=== PATIENT | female | born 1975 ===

== ENCOUNTER 2018-09-29 13:27 | Emergency (ER) | payer MEDICAID ==
[2018-09-29 13:32] VITALS: BMI 25.6
[2018-09-29 13:35] VITALS: TEMP 99
[2018-09-29 14:58] LABS: BASO % 0.8 % (0.0-2.0); EOS % 0.1 % (0.0-4.0); HEMOGLOBIN 10.9 g/dL (11.0-16.0); LYMPH # 1.3 K/uL (1.0-4.3); LYMPH % 34.8 % (20.0-40.0); MEAN CELL VOLUME 66.5 fL (81.0-99.0); MEAN CORPUSCULAR HEMOGLOBIN 21.4 pg (27.0-31.0); MEAN CORPUSCULAR HGB CONC 32.2 g/dL (33.0-37.0); MEAN PLATELET VOLUME 8.8 fL (7.2-11.7); MONO # 0.3 K/uL (0.0-0.8); MONO % 7.6 % (0.0-10.0); NEUT # 2.2 K/uL (1.8-7.0); NEUT % 56.7 % (50.0-75.0); NRBC % 0.1 % (0.0-2.0); RBC 5.07 Mil/uL (3.80-5.20); RED CELL DISTRIBUTION WIDTH 14.2 % (11.5-14.5); WHITE BLOOD COUNT 3.8 K/uL (4.8-10.8)
[2018-09-29 15:12] LABS: ALB/GLOB RATIO 1.7 (1.0-2.1); ALBUMIN 4.6 g/dL (3.5-5.0); ALT/SGPT 21 U/L (9-52); AST/SGOT 21 U/L (14-36); BLOOD UREA NITROGEN 8 mg/dL (7-17); CALCIUM 9.4 mg/dl (8.6-10.4); GFR NON-AFRICAN AMERICAN > 60
--- NOTE | 2018-09-29 15:32 | RAD ---
HISTORY: chest pain COMPARISON: None available. TECHNIQUE: Chest, one view. FINDINGS: LUNGS: No focal consolidation. Please note that chest x-ray has limited sensitivity for the detection of pulmonary masses. PLEURA: No significant pleural effusion identified. No definite pneumothorax . CARDIOVASCULAR: Heart size appears within normal limits. No significant atherosclerotic calcification present. OSSEOUS STRUCTURES: No acute osseous abnormality identified. VISUALIZED UPPER ABDOMEN: Unremarkable. OTHER FINDINGS: None. IMPRESSION: No focal consolidation.
[2018-09-29 16:02] VITALS: BP 117/74; PULSE 72; RESP 20; O2SAT 98
--- NOTE | 2018-09-29 17:47 | C.PDOC ---
History Of Present Illness 43 year old female with no medical problems presents to the emergency department with complaints of anxiety associated with a sharp chest pain since last night. Patient states that she is "under a tremendous amount of stress", as her son is sick at home so she stayed awake most of last night and her dog was euthanized this morning. Patient denies shortness of breath, fever, and cough. Chief Complaint (Nursing): Chest Pain History Per: Patient History/Exam Limitations: no limitations Onset/Duration Of Symptoms: Days (1) Current Symptoms Are (Timing): Still Present Quality: "Pain" Associated Symptoms: Other (anxiety). denies: Dyspnea Past Medical History Reviewed: Historical Data, Nursing Documentation, Vital Signs Vital Signs: Last Vital Signs Temp 99.0 F 09/29/18 13:32 Pulse 72 09/29/18 16:01 Resp 20 09/29/18 16:01 BP 117/74 09/29/18 16:01 Pulse Ox 98 09/29/18 16:01 - Medical History PMH: No Chronic Diseases Surgical History: (twin) Family History: States: Hypertension (Mother) - Social History Hx Alcohol Use: Yes Hx Substance Use: No - Immunization History Hx Tetanus Toxoid Vaccination: No Hx Influenza Vaccination: Yes Hx Pneumococcal Vaccination: No Review Of Systems Except As Marked, All Systems Reviewed And Found Negative. Constitutional: Negative for: Fever, Chills Cardiovascular: Positive for: Chest Pain Respiratory: Negative for: Cough, Shortness of Breath Gastrointestinal: Negative for: Nausea, Vomiting, Abdominal Pain, Diarrhea Physical Exam - Physical Exam Appears: Well, Non-toxic, No Acute Distress Skin: Normal Color, Warm, Dry Head: Atraumatic, Normacephalic Eye(s): bilateral: Normal Inspection, PERRL, EOMI Nose: Normal Oral Mucosa: Moist Neck: Normal, Supple Chest: Symmetrical, No Tenderness Cardiovascular: Rhythm Regular, No Murmur Respiratory: Normal Breath Sounds, No Rales, No Rhonchi, No Wheezing Gastrointestinal/Abdominal: Soft, No Tenderness, No Guarding, No Rebound Extremity: Normal ROM Neurological/Psych: Oriented x3, Normal Speech, Normal Cognition ED Course And Treatment - Laboratory Results Result Diagrams: 09/29/18 14:53 09/29/18 14:53 ECG: Interpreted By Me ECG Rhythm: Sinus Rhythm ECG Interpretation: Normal Rate From EC O2 Sat by Pulse Oximetry: 98 (RA) Pulse Ox Interpretation: Normal - Other Rad CXR X-Ray: Viewed By Me, Read By Radiologist Interpretation: IMPRESSION: No focal consolidation. Medical Decision Making Medical Decision Making: Plan: EKG CMP TSH Troponin CBC CXR Disposition - Disposition Referrals: [facility] [Outside] [facility] [Outside] Disposition: HOME/ ROUTINE Disposition Time: 15:35 Condition: GOOD Additional Instructions: LILLY YANEZ, thank you for letting us take care of you today. The emergency medical care you received today was directed at your acute symptoms. If you were prescribed any medication, please fill it and take as directed. It may take several days for your symptoms to resolve. Return to the Emergency Department if your symptoms worsen, do not improve, or if you have any other problems. Please contact your doctor or call one of the physicians/clinics you have been referred to that are listed on the Patient Visit Information form that is included in your discharge packet. Bring any paperwork you were given at discharge with you along with any medications you are taking to your follow up visit. Our treatment cannot replace ongoing medical care by a primary care provider outside of the emergency department. Thank you for allowing the [facility] team to be part of your care today. Follow up with your primary care doctor or our clinic this week for re- evaluation and further management. Instructions: Anxiety, Adult (DC) Forms: [employer] (Wallisian) - Clinical Impression Clinical Impression: Anxiety - Scribe Statement The provider has reviewed the documentation as recorded by the Scribe (Mark Lorie) Provider Attestation: All medical record entries made by the Scribe were at my direction and personally dictated by me. I have reviewed the chart and agree that the record accurately reflects my personal performance of the history, physical exam, medical decision making, and the department course for this patient. I have also personally directed, reviewed, and agree with the discharge instructions and disposition.
--- NOTE | 2018-09-30 18:22 | CARD ---
APPROVED REPORT Date of service: 09/29/2018 EKG Measurement Heart [id number] <Conclusion> Normal sinus rhythm Normal ECG
--- NOTE | 2018-09-30 18:22 | CARD ---
APPROVED REPORT Date of service: 09/29/2018 EKG Measurement Heart [id number] [id number] <Conclusion> Normal sinus rhythm Normal ECG
== END 2018-09-29 16:01 | disposition home or self-care (01) ==
LOC: C.ER 13:27
DX: F41.9 Anxiety disorder, unspecified (principal)

== ENCOUNTER 2018-09-29 20:01 | Emergency (ER) | payer MEDICAID ==
[2018-09-29 20:02] VITALS: BMI 25.6
--- NOTE | 2018-09-29 20:43 | C.PDOC ---
History Of Present Illness 43 year old female presents to the ER with a complaint of left sided parasternal chest pain. Patient was evaluated earlier today for the same thing. She states he dog was euthanized today. Patient has a Hx of anxiety, had normal work up today. Time Seen by Provider: 09/29/18 20:38 Chief Complaint (Nursing): Chest Pain History Per: Patient History/Exam Limitations: no limitations Onset/Duration Of Symptoms: Hrs Current Symptoms Are (Timing): Still Present Alleviating Factors: None Recent travel outside of the [place]: No Past Medical History Reviewed: Historical Data, Nursing Documentation, Vital Signs Vital Signs: Last Vital Signs Temp 98.7 F 09/29/18 20:12 Pulse 66 09/29/18 20:12 Resp 14 09/29/18 20:12 BP 127/86 09/29/18 20:12 Pulse Ox 100 09/29/18 20:12 Surgical History: (twin) Family History: States: Hypertension (Mother) - Social History Hx Alcohol Use: Yes Hx Substance Use: No - Immunization History Hx Tetanus Toxoid Vaccination: No Hx Influenza Vaccination: Yes Hx Pneumococcal Vaccination: No Review Of Systems Constitutional: Negative for: Fever, Chills Cardiovascular: Positive for: Chest Pain. Negative for: Palpitations Respiratory: Negative for: Cough, Shortness of Breath Gastrointestinal: Negative for: Nausea, Vomiting Neurological: Negative for: Weakness, Numbness Physical Exam - Physical Exam Appears: Non-toxic, Other (Tearful, Anxious) Skin: Normal Color, Warm, Dry Head: Atraumatic, Normacephalic Eye(s): bilateral: Normal Inspection Oral Mucosa: Moist Neck: Normal, Supple Chest: Symmetrical, Tenderness (Digitally reproducible left parasternal border at T4) Cardiovascular: Rhythm Regular Respiratory: Normal Breath Sounds, No Rales, No Rhonchi, No Wheezing Gastrointestinal/Abdominal: Soft, No Tenderness Extremity: Normal ROM (x4) Neurological/Psych: Oriented x3, Normal Speech ED Course And Treatment ECG: Interpreted By Me ECG Rhythm: Sinus Rhythm ECG Interpretation: Normal Rate From EC O2 Sat by Pulse Oximetry: 100 (Room air) Pulse Ox Interpretation: Normal Medical Decision Making Medical Decision Making: digitally reproducable chest wall intercostal pain c/w costochondritis no pna/pnx eval this AM was wnl digitally reproducable pain, severe anxiety, normal ekg on repeat Disposition Doctor Will See Patient In The: Office Counseled Patient/Family Regarding: Studies Performed, Diagnosis - Disposition Referrals: [facility] [Outside] [facility] [Outside] [facility] [Outside] [facility] [Outside] [facility] [Outside] Disposition: HOME/ ROUTINE Disposition Time: 20:43 Condition: GOOD Additional Instructions: ice packs to the affected area 1/2 hour per hour, nothing hot no heavy lifting for 1 week motrin/advil 400 mg every 6 hours as needed outpatient follow-up in our Clinic as needed. Instructions: Costochondritis Forms: [employer] (Comoran) - Clinical Impression Clinical Impression: Chest wall discomfort - Scribe Statement The provider has reviewed the documentation as recorded by the Scribe Kei Mcgovern All medical record entries made by the Scribe were at my direction and personally dictated by me. I have reviewed the chart and agree that the record accurately reflects my personal performance of the history, physical exam, medical decision making, and the department course for this patient. I have also personally directed, reviewed, and agree with the discharge instructions and disposition.
[2018-09-29 20:54] VITALS: BP 110/73; PULSE 72; RESP 16; TEMP 98.3
[2018-09-29 23:02] VITALS: O2SAT 100
== END 2018-09-29 20:53 | disposition home or self-care (01) ==
LOC: C.ER 20:01
DX: R07.89 Other chest pain (principal)

== ENCOUNTER 2018-10-05 22:10 | Emergency (ER) | payer MEDICAID ==
[2018-10-05 22:11] VITALS: BMI 25.6
[2018-10-05 22:30] VITALS: RESP 16
--- NOTE | 2018-10-05 22:44 | C.PDOC ---
History Of Present Illness 43 year old female presents to the ED c/o intermittent RLQ abdominal pain throughout the day. Patient rates her pain at 4/10. Patient denies fever, chills, nausea, vomit, diarrhea, rash, dysuria, hematruia, rash. Time Seen by Provider: 10/05/18 22:44 Chief Complaint (Nursing): Abdominal Pain History Per: Patient History/Exam Limitations: no limitations Onset/Duration Of Symptoms: Hrs, Intermittent Episodes Current Symptoms Are (Timing): Still Present Pain Scale Rating Of: 4 Location Of Pain/Discomfort: RLQ Quality Of Discomfort: "Pain" Associated Symptoms: denies: Nausea, Vomiting, Diarrhea, Urinary Symptoms Recent travel outside of the [place]: No Additional History Per: Patient Abnormal Vaginal Bleeding: No Past Medical History Reviewed: Historical Data, Nursing Documentation, Vital Signs Vital Signs: Last Vital Signs Temp 98 F 10/05/18 22:25 Pulse 75 10/05/18 22:25 Resp 16 10/05/18 22:25 BP 109/63 10/05/18 22:25 Pulse Ox 100 10/05/18 22:25 - Medical History PMH: No Chronic Diseases Surgical History: (twin) Family History: States: Unknown Family Hx, Hypertension (Mother) - Social History Hx Alcohol Use: No Hx Substance Use: Yes - Immunization History Hx Tetanus Toxoid Vaccination: No Hx Influenza Vaccination: Yes Hx Pneumococcal Vaccination: No Review Of Systems Constitutional: Negative for: Fever, Chills Cardiovascular: Negative for: Chest Pain Respiratory: Negative for: Shortness of Breath Gastrointestinal: Positive for: Abdominal Pain. Negative for: Nausea, Vomiting, Diarrhea Genitourinary: Negative for: Dysuria, Hematuria Musculoskeletal: Negative for: Back Pain Skin: Negative for: Rash Neurological: Negative for: Weakness, Numbness Physical Exam - Physical Exam Appears: Non-toxic, No Acute Distress Skin: Warm, Dry Head: Normacephalic Eye(s): bilateral: Normal Inspection Oral Mucosa: Moist Neck: Supple Chest: Symmetrical Cardiovascular: Rhythm Regular Respiratory: No Rales, No Rhonchi, No Wheezing Gastrointestinal/Abdominal: Bowel Sounds (active ), Soft, Tenderness (RLQ), No Guarding, No Rebound Extremity: Normal ROM, No Tenderness, No Swelling Neurological/Psych: Oriented x3, Normal Speech, Normal Cognition Gait: Steady ED Course And Treatment - Laboratory Results Result Diagrams: 10/06/18 00:35 10/06/18 00:35 O2 Sat by Pulse Oximetry: 100 (ON RA) Pulse Ox Interpretation: Normal - CT Scan/US CT abd/pelvis Other Rad Studies (CT/US): Read By Radiologist, Radiology Report Reviewed CT/US Interpretation: CT SCAN OF THE ABDOMEN AND PELVIS WITH CONTRAST. CLINICAL HISTORY: Abdominal pain. TECHNIQUE: Multiple axial and coronal CT images were obtained through the abdomen and pelvis after administration of intravenous contrast material. COMMENTS: Uncomplicated colonic diverticulosis. 2.6 cm lef t ovarian cyst. The liver is of uniform attenuation without mass or defect. There is no intra or extrahepatic biliary ductal dilatation. The spleen is normal. The gallbladder is within normal limits. The pancreas is of normal contour and attenuation characteristics. There is no evidence of adrenal mass. Both kidneys demonstrate prompt and equal nephrograms. The kidneys are normal in size, shape and configuration. There is no evidence of renal or ureteral mass. No renal or ureteral calculi are identified. There is no hydroureter or hydronephrosis. No evidence for appendicitis. There is no bowel wall thickening. No evidence for small or large bowel obstruction. There is no evidence of abdominal ascites or lymphadenopathy. There is no evidence of intrinsic or extrinsic bladder mass. There is no pelvic ascites or lymphadenopathy. Images of the lung bases show no evidence of pleural or p arenchymal mass. There are no pleural effusions. The bony structures are free of lytic or blastic lesions. IMPRESSION: Uncomplicated colonic diverticulosis. 2.6 cm left ovarian cyst. No evidence of acute abdominal or pelvic pathology. Thank you for your kind referral of this patient. . Electronically signed on Oct 06, 2018 3:26:41 AM EST by: Vijaya Nagy M.D., Certified by ABR, MSK, Neuroradiology Progress Note: Plan: - Labs. - IV fluids. - UA Reevaluation Time: 03:46 Reassessment Condition: Improved Medical Decision Making Medical Decision Making: Upon provider reevaluation patient is feeling better, is medically stable, and requires no further treatment in the ED at this time. Patient will be discharged home with Rx for bentyl. Counseling was provided and all questions were answered regarding diagnosis and need for follow up with the referred clinic. There is agreement to discharge plan. Return if symptoms persist or worsen. Disposition Counseled Patient/Family Regarding: Studies Performed, Diagnosis, Need For Followup, Rx Given - Disposition Referrals: [facility] [Outside] [facility] [Outside] Disposition: HOME/ ROUTINE Disposition Time: 22:44 Condition: FAIR Additional Instructions: Please return if symptoms recur Prescriptions: Dicyclomine [Dicyclomine HCl] 10 mg PO QID #20 cap Instructions: Acute Abdomen (Belly Pain), Adult (DC), Diverticulosis (DC) Forms: [email or web address] (Anguillan) - Clinical Impression Clinical Impression: Abdominal pain, Diverticulosis - Scribe Statement The provider has reviewed the documentation as recorded by the Scribe Noel Mcfarland All medical record entries made by the Scribe were at my direction and personally dictated by me. I have reviewed the chart and agree that the record accurately reflects my personal performance of the history, physical exam, medical decision making, and the department course for this patient. I have also personally directed, reviewed, and agree with the discharge instructions and disposition.
[2018-10-05] MEDS ORDERED: Sodium Chloride 0.9% 1,000 ML IV ONE (22:45)
[2018-10-06 00:42] LABS: BASO % 0.2 % (0.0-2.0); EOS # 0.1 K/uL (0.0-0.7); EOS % 1.7 % (0.0-4.0); HEMOGLOBIN 10.9 g/dL (11.0-16.0); LYMPH # 3.1 K/uL (1.0-4.3); LYMPH % 48.9 % (20.0-40.0); MEAN CELL VOLUME 67.6 fL (81.0-99.0); MEAN CORPUSCULAR HEMOGLOBIN 21.6 pg (27.0-31.0); MONO # 0.5 K/uL (0.0-0.8); MONO % 7.7 % (0.0-10.0); NEUT # 2.6 K/uL (1.8-7.0); NEUT % 41.5 % (50.0-75.0); NRBC % 0.1 % (0.0-2.0); RBC 5.04 Mil/uL (3.80-5.20); RED CELL DISTRIBUTION WIDTH 14.8 % (11.5-14.5); WHITE BLOOD COUNT 6.4 K/uL (4.8-10.8)
[2018-10-06 00:46] LABS: HCG,QUALITATIVE URINE NEGATIVE (NEGATIVE)
[2018-10-06 00:54] LABS: SQUAMOUS EPITHIAL 19 /hpf (0-5); URINE BACTERIA RARE (<OCC); URINE BILIRUBIN NEGATIVE (NEGATIVE); URINE BLOOD NEGATIVE (NEGATIVE); URINE CLARITY Hazy (Clear); URINE COLOR Yellow (YELLOW); URINE GLUCOSE (UA) NORMAL (Normal); URINE HYALINE CAST 0-2 /lpf (0-2); URINE LEUKOCYTE ESTERASE NEG Leu/uL (Negative); URINE PROTEIN NEGATIVE (NEGATIVE)
[2018-10-06 01:15] LABS: INR 1.1; PROTHROMBIN TIME 11.7 SECONDS (9.7-12.2)
[2018-10-06 01:29] LABS: ALB/GLOB RATIO 1.5 (1.0-2.1); ALT/SGPT 21 U/L (9-52); AST/SGOT 19 U/L (14-36); BLOOD UREA NITROGEN 15 mg/dL (7-17); CALCIUM 9.2 mg/dl (8.6-10.4); GFR NON-AFRICAN AMERICAN > 60; LIPASE 150 U/L (23-300)
[2018-10-06 04:03] VITALS: BP 107/71; PULSE 55; TEMP 97.9; O2SAT 99
--- NOTE | 2018-10-06 08:45 | CT ---
CT abdomen and pelvis HISTORY: Right lower quadrant abdominal pain. COMPARISON: None available. TECHNIQUE: Multiple contiguous axial images were performed through the abdomen and pelvis with the use of intravenous contrast. Subsequently, sagittal and coronal reformatted images were obtained. This CT exam was performed using one or more of the following dose reduction techniques: Automated exposure control, adjustment of the mA and/or kV according to patient size, and/or use of iterative reconstruction technique. Findings: Mild atelectasis at the lung bases. No pleural or pericardial effusion. Liver is preserved. Contracted gallbladder. Spleen is preserved. Mild nodularity of the left adrenal gland. Pancreas is grossly preserved. Upper abdominal bowel is grossly preserved. Right kidney: 3 millimeter hypodensity in the midpole of the right kidney, too small to adequately characterize. Left Kidney: No calculi or hydronephrosis. Urinary bladder is grossly preserved. Heterogeneous uterus, endometrium, and cervix. Clinical correlation. Correlation with pelvic ultrasound may be helpful if clinically indicated. 2.7 centimeter left adnexal cyst. Colonic diverticulosis. Mild underdistention and or mild thickening of the sigmoid colon. Clinical correlation. Fecal retention in the right hemicolon. Appendix is within normal limits. Few shotty para-aortic and inguinal lymph nodes. Few shotty mesenteric lymph nodes. Degenerative changes in the spine. Schmorl's node noted at the superior endplate of the S1 vertebral body. Mild scoliotic curvature of the lower lumbar spine. Impression: 1. Colonic diverticulosis. Mild underdistention and or mild thickening of the sigmoid colon. Clinical correlation. Fecal retention in the right hemicolon. 2. Heterogeneous uterus, endometrium, and cervix. Clinical correlation. Correlation with pelvic ultrasound may be helpful if clinically indicated. 3. 2.7 centimeter left adnexal cyst. Additional findings as above. A preliminary report was generated at 3:26 a.m. on 10/06/[address] Vijaya Nagy from [employer].
== END 2018-10-06 04:08 | disposition home or self-care (01) ==
LOC: C.ER 22:10
DX: K57.30 Diverticulosis of large intestine without perforation or abscess without bleeding (principal); R10.31 Right lower quadrant pain
CPT/HCPCS: 74177; 80053; 81001; 83690; 84703; 85025; 85610; 85730; 96360; 99284; J7030

== ENCOUNTER 2018-10-07 19:45 | Emergency (ER) | payer MEDICAID ==
[2018-10-07 19:45] VITALS: BMI 25.6
[2018-10-07 20:13] LABS: BASO % 0.3 % (0.0-2.0); EOS # 0.1 K/uL (0.0-0.7); EOS % 1.2 % (0.0-4.0); HEMOGLOBIN 11.1 g/dL (11.0-16.0); LYMPH # 2.2 K/uL (1.0-4.3); LYMPH % 37.6 % (20.0-40.0); MEAN CELL VOLUME 66.8 fL (81.0-99.0); MEAN CORPUSCULAR HEMOGLOBIN 21.2 pg (27.0-31.0); MEAN CORPUSCULAR HGB CONC 31.8 g/dL (33.0-37.0); MEAN PLATELET VOLUME 8.5 fL (7.2-11.7); MONO # 0.4 K/uL (0.0-0.8); MONO % 7.1 % (0.0-10.0); NEUT # 3.2 K/uL (1.8-7.0); NEUT % 53.8 % (50.0-75.0); RBC 5.25 Mil/uL (3.80-5.20); RED CELL DISTRIBUTION WIDTH 14.7 % (11.5-14.5)
[2018-10-07 20:24] LABS: INR 1.1; PROTHROMBIN TIME 12.1 SECONDS (9.7-12.2)
[2018-10-07] MEDS ORDERED: Sodium Chloride 0.9% 1,000 ML IV ONE (20:24)
[2018-10-07] MEDS ORDERED: Sucralfate 1 gm/10 ml Oral Susp UD PO STA (20:24)
[2018-10-07 20:25] LABS: ALB/GLOB RATIO 1.5 (1.0-2.1); ALBUMIN 4.2 g/dL (3.5-5.0); ALT/SGPT 21 U/L (9-52); AST/SGOT 18 U/L (14-36); BLOOD UREA NITROGEN 12 mg/dL (7-17); CALCIUM 9.7 mg/dl (8.6-10.4); GFR NON-AFRICAN AMERICAN > 60
[2018-10-07] MEDS ORDERED: Sodium Chloride 0.9% 1,000 ML ONE (20:33)
--- NOTE | 2018-10-07 20:34 | C.PDOC ---
History Of Present Illness 43 year old female presents to the ER with a complaint of bilateral lower chest wall area pain and epigastric pain that radiates to her back. Denies dysuria or hematuria. Chief Complaint (Nursing): Chest Pain History Per: Patient History/Exam Limitations: no limitations Onset/Duration Of Symptoms: Hrs Current Symptoms Are (Timing): Still Present Exacerbating Factors: None Alleviating Factors: None Recent travel outside of the [place]: No Past Medical History Reviewed: Historical Data, Nursing Documentation, Vital Signs Vital Signs: Last Vital Signs Temp 98.5 F 10/07/18 19:56 Pulse 78 10/07/18 19:56 Resp 20 10/07/18 19:56 BP 109/88 10/07/18 19:56 Pulse Ox 99 10/07/18 19:56 - Medical History PMH: Diverticulitis Surgical History: (twin) Family History: States: Hypertension (Mother) - Social History Hx Alcohol Use: No Hx Substance Use: Yes - Immunization History Hx Tetanus Toxoid Vaccination: Yes Hx Influenza Vaccination: Yes Hx Pneumococcal Vaccination: No Review Of Systems Constitutional: Negative for: Fever, Chills Cardiovascular: Negative for: Palpitations Respiratory: Negative for: Cough, Shortness of Breath Gastrointestinal: Positive for: Abdominal Pain (Epigastric) Genitourinary: Negative for: Dysuria, Hematuria Musculoskeletal: Positive for: Back Pain, Other (Lower chest wall area pain) Neurological: Negative for: Weakness, Numbness Physical Exam - Physical Exam Appears: Non-toxic Skin: Normal Color, Warm, Dry Head: Atraumatic, Normacephalic Eye(s): bilateral: Normal Inspection Oral Mucosa: Moist Chest: Symmetrical, No Tenderness Cardiovascular: Rhythm Regular Respiratory: Normal Breath Sounds, No Rales, No Rhonchi, No Wheezing Gastrointestinal/Abdominal: Soft, Tenderness (Epigastric), No Guarding, No Rebound Back: No CVA Tenderness Neurological/Psych: Oriented x3, Normal Speech ED Course And Treatment - Laboratory Results Result Diagrams: 10/07/18 20:10 10/07/18 20:10 Lab Results: PT 12.1 SECONDS (9.7-12.2) 10/07/18 20:10 INR 1.1 10/07/18 20:10 APTT 31 SECONDS (21-34) 10/07/18 20:10 Total Bilirubin 0.7 mg/dL (0.2-1.3) 10/07/18 20:10 AST 18 U/L (14-36) 10/07/18 20:10 ALT 21 U/L (9-52) 10/07/18 20:10 Alkaline Phosphatase 47 U/L (38-126) 10/07/18 20:10 Total Protein 7.0 g/dL (6.3-8.3) 10/07/18 20:10 Albumin 4.2 g/dL (3.5-5.0) 10/07/18 20:10 Globulin 2.8 gm/dL (2.2-3.9) 10/07/18 20:10 Albumin/Globulin Ratio 1.5 (1.0-2.1) 10/07/18 20:10 ECG: Interpreted By Me, Viewed By Me ECG Rhythm: Sinus Rhythm ECG Interpretation: Normal, No Acute Changes Interpretation Of ECG: NSR, normal tracings. Rate From EC O2 Sat by Pulse Oximetry: 99 (Room air) Pulse Ox Interpretation: Normal Progress Note: Blood work ordered. Carafate, pepcid, and IV fluids administered. Disposition Counseled Patient/Family Regarding: Diagnosis - Disposition Referrals: [facility] [Outside] Disposition: HOME/ ROUTINE Disposition Time: 00:50 Condition: STABLE Prescriptions: Pantoprazole Sodium [Protonix] 40 mg PO DAILY #30 ect Sucralfate [Carafate] 1 gm PO BID #14 tab Instructions: Acid Reflux (Gastroesophageal Reflux Disease), Adult (DC) Forms: [facility] (Azeri) - POA Present On Arrival: None - Clinical Impression Clinical Impression: GERD (gastroesophageal reflux disease) - Scribe Statement The provider has reviewed the documentation as recorded by the Scriblinda Mcgovern All medical record entries made by the Scribe were at my direction and personally dictated by me. I have reviewed the chart and agree that the record accurately reflects my personal performance of the history, physical exam, medical decision making, and the department course for this patient. I have also personally directed, reviewed, and agree with the discharge instructions and disposition.
[2018-10-07 21:10] VITALS: BP 113/73; PULSE 62; RESP 18; TEMP 98
[2018-10-07 22:08] VITALS: O2SAT 99
--- NOTE | 2018-10-10 17:23 | CARD ---
APPROVED REPORT Date of service: 10/07/2018 EKG Measurement Heart [id number] <Conclusion> Normal sinus rhythm Normal ECG
== END 2018-10-08 01:03 | disposition home or self-care (01) ==
LOC: C.ER 19:45
DX: K21.9 Gastro-esophageal reflux disease without esophagitis (principal)
CPT/HCPCS: 36415; 80053; 84484; 85025; 85610; 85730; 93005; 96374; 99283; J7030

== ENCOUNTER 2018-10-19 14:18 | Outpatient (CLI) | payer MEDICAID | END 2018-10-19 14:19 | disposition home or self-care (01) | LOC: C.USIC 14:18 ==

== ENCOUNTER 2018-12-28 12:48 | Outpatient (CLI) | payer MEDICAID | END 2018-12-28 12:49 | disposition home or self-care (01) | LOC: C.MAMMO 12:49 | DX: N63.0 Unspecified lump in unspecified breast (principal) ==